=== PATIENT | female | born 1980 | race Caucasian/White ===

== ENCOUNTER 2022-08-25 00:19 | Emergency (ER) | payer OTHER, SELFPAY ==
[2022-08-25 00:28] VITALS: BP 148/96; PULSE 59; RESP 14; TEMP 36.1; O2SAT 100
[2022-08-25 01:10] LABS: Strep Group A RT-PCR NOT DETECTED (Negative)
[2022-08-25 01:31] LABS: Basophils Absolute Auto 0.1 K/mm3 (0.0-0.1); Basophils Percent Auto 0.5 % (0.2-1.2); Eosinophils Absolute Auto 0.1 K/mm3 (0-0.3); Eosinophils Percent Auto 0.7 % (0-4.4); Hematocrit 37.5 % (37.0-47.0); Hemoglobin 12.8 g/dL (12.0-15.0); Immature Granulocyte Absolute 0.03 K/mm3 (0.00-0.031); Immature Granulocyte Percent A 0.3 % (0-0.5); Lymphocytes Absolute Auto 2.83 K/mm3 (0.9-3.2); Mean Corpuscular HGB Conc 34.1 g/dl (32-36); Mean Corpuscular Hemoglobin 27.6 pg (26-34); Mean Platelet Volume 8.9 fl (7.4-10.4); Monocytes Absolute Auto 0.6 K/mm3 (0.1-0.6); Monocytes Percent Auto 5.9 % (2.6-8.5); Neutrophils Absolute Auto 6.2 K/mm3 (1.3-6.7); Neutrophils Percent Auto 63.6 % (45.5-73.1); Platelet Count Result 438 k/mm3 (150-375); Red Blood Count 4.63 M/mm3 (4.2-5.4); White Blood Count 9.8 K/mm3 (4.5-10.0)
[2022-08-25 01:43] LABS: Anion Gap 7 mmol/L (8-16); Blood Urea Nitrogen 10 mg/dL (7-17); Calcium 8.8 mg/dL (8.4-10.2); Carbon Dioxide 27 mmol/L (22-30); Chloride 103 mmol/L (98-107); Estimated CRCL calculation 106 ml/min; Estimated Glomerular Filt Rate > 60; Glucose 125 mg/dL (65-110); Potassium 3.8 mmol/L (3.4-5.0); Sodium 137 mmol/L (137-145)
--- NOTE | 2022-08-25 01:55 | ED.GENADULT ---
HPI - General Adult General Chief complaint: Unspecified Stated complaint: left tonsil soreness Time Seen by Provider: 08/25/22 01:04 History of Present Illness HPI narrative: 42-year-old female here for evaluation of left-sided sore throat for the past several hours. Denies sick contacts. She attempted ibuprofen with moderate relief of her symptoms. She has been able to tolerate secretions, no trismus, fevers, neck swelling or shortness of breath. Related Data Allergies Allergy/AdvReac Type Severity Reaction Status Date / Time No Known Allergies Allergy Verified 08/25/22 00:20 Review of Systems Review of Systems: Gen.: Denies fevers or chills Eyes: Denies eye pain or visual change ENT: Reports sore throat Respiratory: Denies shortness of breath or cough CV: Denies chest pain or palpitations GI: Denies abdominal pain nausea, emesis or diarrhea denies burning, urgency, frequency or hematuria Musculoskeletal: Denies back pain or muscle pain Neuro: Denies numbness, tingling, weakness or focal weakness Skin: Denies rash Except as documented, all other systems reviewed and negative Exam Narrative: APPEARANCE: Well appearing, no pain in distress, well-nourished. Head: Normocephalic and atraumatic. EYES: PERRLA/EOMI, conjunctivae clear NOSE: No nasal drainage EARS: External ear normal in appearance THROAT: Left tonsil is 2+ compared to the right tonsil which is 1+. The left tonsil is erythematous without exudates. NECK: Supple. No adenopathy, no masses. RESPIRATORY: Airway patent, respirations nonlabored. Clear to auscultation bilaterally, no rales, rhonchi, wheezing. CARDIOVASCULAR: Regular rate and rhythm without murmurs, rubs, or gallops. ABDOMINAL: Normoactive bowel sounds. Soft, nontender, nondistended. No rebound tenderness or guarding. MUSCULOSKELETAL: Extremities are warm and well-perfused. Moves all extremities well. No edema. NEURO: Normal speech. No focal neurologic deficits. SKIN: Skin is warm and dry. No rashes. PSYCHIATRIC: Normal affect/mood.. Course Vital Signs Vital signs: Vital Signs Temperature 97.0 F L 08/25/22 00:28 Pulse Rate 59 L 08/25/22 00:28 Respiratory Rate 14 08/25/22 00:28 Blood Pressure 148/96 H 08/25/22 00:28 Pulse Oximetry 100 08/25/22 00:28 Oxygen Delivery Room Air 08/25/22 00:28 Temperature 98 F 08/25/22 02:21 Pulse Rate 65 08/25/22 02:21 Respiratory Rate 18 08/25/22 02:21 Blood Pressure 123/79 08/25/22 02:21 Pulse Oximetry 99 08/25/22 02:21 Oxygen Delivery Room Air 08/25/22 00:28 Medical Decision Making [facility] Narrative Medical decision making narrative: 42-year-old female here for evaluation of left-sided tonsil pain for the past several hours. Her left tonsil is swollen on exam but there is no uvular deviation or visible abscess. Patient is nontoxic in appearance, tolerating her secretions, no significant swelling on exam, full range motion in neck. Strep and mono are negative, basic labs unremarkable. Likely tonsillitis, she was given steroids in the ED. Patient was offered imaging of the neck to rule out deep space abscess which she declined, wants to go home and follow-up with her PCP which I feel is reasonable at this time. Return precautions were discussed and she voiced understanding. Vital Signs Vital Signs: Vital Signs Temperature 97.0 F L 08/25/22 00:28 Pulse Rate 59 L 08/25/22 00:28 Respiratory Rate 14 08/25/22 00:28 Blood Pressure 148/96 H 08/25/22 00:28 Pulse Oximetry 100 08/25/22 00:28 Oxygen Delivery Room Air 08/25/22 00:28 Temperature 98 F 08/25/22 02:21 Pulse Rate 65 08/25/22 02:21 Respiratory Rate 18 08/25/22 02:21 Blood Pressure 123/79 08/25/22 02:21 Pulse Oximetry 99 08/25/22 02:21 Oxygen Delivery Room Air 08/25/22 00:28 Lab Data 08/25/22 01:25 08/25/22 01:25 Labs: Lab Results 08/25/22 08/25/22 08/25/22 Range/Units 00:27 01:25 0
[2022-08-25 02:21] VITALS: BP 123/79; PULSE 65; RESP 18; TEMP 36.6; O2SAT 99
[2022-08-25 03:00] LABS: Monoscreen Negative (Negative); Negative Monotest Control Negative (Negative); Positive Monotest Control Positive (Positive)
== END 2022-08-25 02:21 | disposition home or self-care (01) ==
PROVIDERS: Emergency Medicine; Emergency Provider Physician Assistant
DX: J03.90 Acute tonsillitis, unspecified (principal)
CPT/HCPCS: 36415; 80048; 85025; 86308; 87651; 96372; 99283; J1100